=== PATIENT | female | born 1945 | race Hispanic/Latino ===

== ENCOUNTER 2018-02-10 19:56 | Observation (INO) | payer MEDICARE ==
[~2018-02-10] VITALS: Ht 165.1 cm; Wt 64.4 kg
[~2018-02-10 19:56] MED LIST: ALBU8.5H8 IH; CETI10TA86 PO; ESOM40CA PO; HYOS-28 PO; METO5TAB87 PO; ONDA4TAB10 PO; TRAM50TA2 PO; [UNRECOGNIZED DRUG - CODE] PO
[2018-02-10] MEDS ORDERED: IPRATROPIUM/ALBUTEROL SULFATE 3 ML SOLUTION IH ONE (20:15)
[2018-02-10 20:23] LABS: EOSINOPHILS % (AUTO) 3.8 % (0.0-8.0); HEMATOCRIT 34.5 % (36-48); LYMPHOCYTES % (AUTO) 34.1 % (21.0-51.0); MEAN CORPUSCULAR HEMOGLOBIN 28.3 pg (27.0-33.0); MEAN CORPUSCULAR HGB CONC 34.6 g/dL (32.0-36.0); MEAN CORPUSCULAR VOLUME 81.8 fL (79-99); MONOCYTES % (AUTO) 8.3 % (3.0-13.0); NEUTROPHILS % (AUTO) 52.8 % (40.0-77.0); NUCLEATED RED BLOOD CELLS 0.1 % (0.0-0.19); PLATELET COUNT (AUTO) 228 K/uL (130-400); RED BLOOD CELL COUNT(AUTO) 4.22 MIL/uL (4.00-5.50); RED CELL DISTRIBUTION WIDTH 14.2 % (11.0-15.5); WHITE BLOOD COUNT (AUTO) 8.9 K/uL (4.8-10.8)
[2018-02-10 20:36] LABS: INR 0.95 (0.85-1.15)
[2018-02-10 20:44] LABS: POTASSIUM 3.8 mmol/L (3.5-5.1)
[2018-02-10 20:50] LABS: B-TYPE NATRIURETIC PEPTIDE 28 pg/mL (0-100)
[2018-02-10 20:52] LABS: ALBUMIN 3.2 g/dL (3.5-5.0); BILIRUBIN,TOTAL 0.2 mg/dL (0.2-1.0); TOTAL PROTEIN, SERUM 6.7 g/dL (6.0-8.3)
[2018-02-10] MEDS ORDERED: ASPIRIN 325 MG TABLET ONE (21:28)
[2018-02-10] MEDS ORDERED: ACETAMINOPHEN 325 MG TAB PO PRN ×2 (23:00)
[2018-02-10] MEDS ORDERED: HYDRALAZINE HCL 20 MG/ML VIAL IV PRN (23:00)
[2018-02-10] MEDS ORDERED: POTASSIUM CHLORIDE 20MEQ/100ML 100 ML IV PRN (23:00)
[2018-02-10] MEDS ORDERED: POTASSIUM CHLORIDE 20 MEQ ERTAB PO PRN (23:00)
[2018-02-10] MEDS ORDERED: POTASSIUM CHLORIDE 10% ELIXIR 20 MEQ/15 ML UDCUP PO PRN (23:00)
[2018-02-10] MEDS ORDERED: LIDOCAINE HCL-MPF 1% 2ML VIAL IVP PRN (23:00)
[2018-02-10] MEDS ORDERED: ONDANSETRON HCL 4 MG/2 ML VIAL IV PRN (23:00)
[2018-02-11] VITALS (7 sets, daily range): BP systolic 127–160; BP diastolic 66–85
[2018-02-11] MEDS: KETOROLAC TROMETHAMINE 15MG/ML IV PRN ×3 (00:51→22:58)
[2018-02-11] MEDS: NITROGLYCERIN 1GM/1 INCH PACKET TD SCH ×4 (00:56→22:51)
[2018-02-11 02:34] LABS: CREATINE KINASE MB 1.6 ng/mL (0.5-3.6); TROPONIN I 0.15 ng/mL (0.00-0.06)
[2018-02-11] MEDS ORDERED: ACET1TAB25 PO (03:08)
[2018-02-11] MEDS ORDERED: HYDR-3422 PO (03:08)
[2018-02-11] MEDS ORDERED: LORA10TA7 PO (03:09)
[2018-02-11] MEDS ORDERED: MELO-106 PO (03:09)
[2018-02-11] MEDS ORDERED: VENL100T4 PO (03:09)
[2018-02-11] MEDS ORDERED: TRAZ-187 PO (03:09)
[2018-02-11] MEDS ORDERED: BUSP7.5T7 PO (03:09)
[2018-02-11] MEDS ORDERED: DONE10TA43 PO (03:09)
[2018-02-11 08:35] LABS: HEMATOCRIT 33.2 % (36-48); MEAN CORPUSCULAR HEMOGLOBIN 27.5 pg (27.0-33.0); MEAN CORPUSCULAR HGB CONC 33.4 g/dL (32.0-36.0); MEAN CORPUSCULAR VOLUME 82.3 fL (79-99); PLATELET COUNT (AUTO) 185 K/uL (130-400); RED BLOOD CELL COUNT(AUTO) 4.03 MIL/uL (4.00-5.50); RED CELL DISTRIBUTION WIDTH 14.5 % (11.0-15.5); WHITE BLOOD COUNT (AUTO) 8.8 K/uL (4.8-10.8)
[2018-02-11 08:58] LABS: CREATINE KINASE MB 1.5 ng/mL (0.5-3.6); POTASSIUM 3.8 mmol/L (3.5-5.1); TROPONIN I 0.12 ng/mL (0.00-0.06)
[2018-02-11] MEDS: FAMOTIDINE 20MG TAB 20 MG TAB PO SCH ×2 (09:21→20:15)
[2018-02-11] MEDS: METOPROLOL TARTRATE 25 MG TAB PO SCH (09:21)
[2018-02-11] MEDS: ASPIRIN 325 MG TABLET PO SCH (09:21)
[2018-02-11] MEDS ORDERED: TRAMADOL HCL 50 MG TABLET PO PRN (12:15)
[2018-02-11] MEDS: METOCLOPRAMIDE 5 MG TABLET PO SCH ×2 (12:53→16:44)
[2018-02-11] MEDS: HYDROXYZINE HCL 25 MG TABLET PO SCH ×2 (14:11→20:15)
[2018-02-11] MEDS: MELOXICAM 7.5 MG TABLET PO SCH (20:16)
[2018-02-11] MEDS ORDERED: TRAZODONE HCL 100 MG TABLET PO SCH (21:00)
[2018-02-11] MEDS ORDERED: DONEPEZIL HCL 5 MG TAB PO SCH (21:00)
[2018-02-11] MEDS ORDERED: ONDANSETRON HCL MDV 20ML 2 MG/ML VIAL ONE (22:46)
[2018-02-12] MEDS: METOPROLOL TARTRATE 25 MG TAB PO SCH ×2 (00:14→09:32)
[2018-02-12 03:33] VITALS: BP 127/56
[2018-02-12] MEDS: NITROGLYCERIN 1GM/1 INCH PACKET TD SCH (06:29)
[2018-02-12] MEDS: METOCLOPRAMIDE 5 MG TABLET PO SCH ×2 (06:33→11:30)
[2018-02-12 07:00] VITALS: BP 122/58
[2018-02-12] MEDS ORDERED: BUSPIRONE HCL 5 MG TABLET PO SCH (09:00)
[2018-02-12] MEDS ORDERED: VENLAFAXINE HCL 50 MG TABLET PO SCH (09:00)
[2018-02-12] MEDS ORDERED: LORATADINE 10 MG TABLET PO SCH (09:00)
[2018-02-12] MEDS: HYDROXYZINE HCL 25 MG TABLET PO SCH (09:31)
[2018-02-12] MEDS: ASPIRIN 325 MG TABLET PO SCH (09:32)
[2018-02-12] MEDS: MELOXICAM 7.5 MG TABLET PO SCH (09:32)
[2018-02-12] MEDS: FAMOTIDINE 20MG TAB 20 MG TAB PO SCH (09:32)
[2018-02-12 11:00] VITALS: BP 133/64
== END 2018-02-12 12:50 | disposition home or self-care (01) ==
LOC: EDH 19:56 → EDHIP 22:25 → 2DH 23:15
PROVIDERS: ADMIT Family Medicine; ATTEND Family Medicine
DX: R07.9 Chest pain, unspecified (principal); F41.9 Anxiety disorder, unspecified; F32.9 Major depressive disorder, single episode, unspecified; M19.90 Unspecified osteoarthritis, unspecified site; Z88.0 Allergy status to penicillin; Z90.49 Acquired absence of other specified parts of digestive tract
CPT/HCPCS: 36415 ×2; 71045; 71250; 80048; 80053; 82550 ×3; 82553 ×2; 83874 ×2; 83880; 84484 ×3; 85025; 85027; 85378; 85610; 85730; 93005; 93306; 94640; 96374; 96375; 96376; 99291; G0378 ×38; J1885 ×3

== ENCOUNTER → 2019-02-07 | Outpatient (CLI) | payer MEDICARE ==
[~2019-02-07] MED LIST changes: +BUSP7.5T7 PO; -CETI10TA86 PO; +DONE10TA43 PO; -ESOM40CA PO; +HYDR-3422 PO; -HYOS-28 PO; +LORA10TA7 PO; +MELO-106 PO; -ONDA4TAB10 PO; -TRAM50TA2 PO; +TRAZ-187 PO; +VENL100T4 PO; -[UNRECOGNIZED DRUG - CODE] PO
== END | disposition home or self-care (01) ==
LOC: RAH 13:13
PROVIDERS: ATTEND Anesthesiology
DX: S83.242A Other tear of medial meniscus, current injury, left knee, initial encounter (principal); S83.241A Other tear of medial meniscus, current injury, right knee, initial encounter; M47.816 Spondylosis without myelopathy or radiculopathy, lumbar region; M48.061 Spinal stenosis, lumbar region without neurogenic claudication; M17.0 Bilateral primary osteoarthritis of knee; X58.XXXA Exposure to other specified factors, initial encounter; Y93.89 Activity, other specified; Y92.89 Other specified places as the place of occurrence of the external cause; Y99.8 Other external cause status
CPT/HCPCS: 72100; 72148; 73562; 73721

== ENCOUNTER 2019-04-23 22:46 | Emergency (ER) | payer MEDICARE ==
[2019-04-23 23:39] LABS: BASOPHILS % (AUTO) 0.8 % (0.0-5.0); EOSINOPHILS % (AUTO) 1.8 % (0.0-8.0); HEMATOCRIT 41.2 % (36-48); LYMPHOCYTES % (AUTO) 34.6 % (21.0-51.0); MEAN CORPUSCULAR HEMOGLOBIN 29.2 pg (27.0-33.0); MEAN CORPUSCULAR HGB CONC 33.3 g/dL (32.0-36.0); MEAN CORPUSCULAR VOLUME 87.6 fL (79-99); MONOCYTES % (AUTO) 9.4 % (3.0-13.0); NEUTROPHILS % (AUTO) 53.4 % (40.0-77.0); PLATELET COUNT (AUTO) 175 K/uL (130-400); RED CELL DISTRIBUTION WIDTH 14.6 % (11.0-15.5)
[2019-04-23] MEDS ORDERED: DiphenhydrAMINE HCL 50 MG/ML VIAL ONE (23:55)
[2019-04-23] MEDS ORDERED: LIDOCAINE 5% TOPICAL PATCH TP ONE (23:55)
[2019-04-23] MEDS ORDERED: KETOROLAC TROMETHAMINE 15MG/ML ONE (23:56)
[2019-04-23] MEDS ORDERED: SODIUM CHLORIDE 0.9% 1000ML 1,000 ML IV ONE (23:57)
[2019-04-24 00:13] LABS: CREATININE 1.2 mg/dL (0.5-1.5); POTASSIUM 3.2 mmol/L (3.5-5.1)
[2019-04-24 00:18] LABS: ALBUMIN 4.1 g/dL (3.5-5.0); BILIRUBIN,TOTAL 0.7 mg/dL (0.2-1.0); TOTAL PROTEIN, SERUM 7.7 g/dL (6.0-8.3)
[2019-04-24] MEDS ORDERED: LIDOCAINE PF 2% 5ML ABBOJECT ONE (00:34)
== END 2019-04-24 02:10 | disposition home or self-care (01) ==
LOC: EDH 22:46
DX: M62.830 Muscle spasm of back (principal); G89.29 Other chronic pain; F41.9 Anxiety disorder, unspecified; R10.13 Epigastric pain; R11.2 Nausea with vomiting, unspecified; R06.00 Dyspnea, unspecified; F32.9 Major depressive disorder, single episode, unspecified; M19.90 Unspecified osteoarthritis, unspecified site; Z91.041 Radiographic dye allergy status; Z88.0 Allergy status to penicillin; Z90.710 Acquired absence of both cervix and uterus
CPT/HCPCS: 36415; 72100; 80053; 82550; 85025; 96361; 96374; 96375; 99285; J1200; J1885; J2001; J7030

== ENCOUNTER 2024-10-18 17:02 | Emergency (ER) | payer OTHER ==
[~2024-10-18] VITALS: Ht 165.1 cm; Wt 54.4 kg
[~2024-10-18 17:02] MED LIST changes: -ALBU8.5H8 IH; +ALPR1TAB7 PO; -BUSP7.5T7 PO; -DONE10TA43 PO; -LORA10TA7 PO; -MELO-106 PO; -METO5TAB87 PO; +PANT40GR PO; +RISP1TAB68 PO; -TRAZ-187 PO; -VENL100T4 PO
[2024-10-18] MEDS: ALPRAZolam 0.5 MG TABLET PO ONE (18:12)
[2024-10-18 18:19] LABS: BASOPHILS # (AUTO) 0.05 K/uL (0.00-0.20); BASOPHILS % (AUTO) 0.8 % (0.0-5.0); EOSINOPHILS # (AUTO) 0.01 K/uL (0.00-0.70); EOSINOPHILS % (AUTO) 0.2 % (0.0-8.0); HEMATOCRIT 37.9 % (36-48); IMMATURE GRANULOCYTE ABSOLUTE 0.02 K/uL (0-1); LYMPHOCYTES # (AUTO) 1.3 K/uL (1.0-4.8); LYMPHOCYTES % (AUTO) 19.2 % (21.0-51.0); MEAN CORPUSCULAR HGB CONC 33.8 g/dL (32.0-36.0); MEAN CORPUSCULAR VOLUME 97.7 fL (79-99); MONOCYTES # (AUTO) 0.3 K/uL (0.1-1.0); MONOCYTES % (AUTO) 5.2 % (3.0-13.0); NEUTROPHILS # (AUTO) 4.9 K/uL (1.8-7.7); NEUTROPHILS % (AUTO) 74.3 % (40.0-77.0); PLATELET COUNT (AUTO) 235 K/uL (130-400); RED BLOOD CELL COUNT(AUTO) 3.88 MIL/uL (4.00-5.50); RED CELL DISTRIBUTION WIDTH 13.1 % (11.0-15.5); WHITE BLOOD COUNT (AUTO) 6.6 K/uL (4.8-10.8)
--- NOTE | 2024-10-18 18:26 | EKG ---
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
[2024-10-18 18:27] LABS: CREATININE 0.8 mg/dL (0.5-1.0); POTASSIUM 3.3 mmol/L (3.5-5.1)
--- NOTE | 2024-10-18 18:40 | ERN ---
ED Note History of Present Illness Stated Complaint: ANXIETY MEDICATION, MULTIPLE COMPLAINTS Chief Complaint: Anxiety/Panic Attack Time Seen by MD: 17:08 Time Seen by Midlevel: 17:08 Dictation: The patient is a 79-year-old female with a history of anxiety, arthritis, GERD who presents to the emergency department with complaints of a feeling anxious onset four days ago after she finished her prescription of alprazolam. Patient takes alprazolam1 mg q.i.d.. Reports she was seen by her primary doctor who refused to give her anymore prescriptions. Allergies: Coded Allergies: codeine (Unverified Allergy, Mild, HEADACHE, 08/25/14) GENERALIZED PAIN Iodine and Iodide Containing Produc (Unverified Allergy, Unknown, 04/24/19) Penicillins (Verified Allergy, Unknown, UNKNOWN, 07/16/13) PT DOES NOT KNOW iodine (Verified Allergy, Unknown, VOMITTING, 07/16/13) PT WAS DOES NOT REMEMBER EXACTLY WHAT HAPPEN Home Meds Reported Medications Risperidone (Risperidone) 1 Mg Tab.rapdis, 1 MG PO BID, TAB 06/05/23 Pantoprazole Sodium (Pantoprazole Sodium) 40 Mg Granpkt.dr, 40 MG PO DAILY, PACK 06/05/23 Alprazolam (Alprazolam) 1 Mg Tablet, 1 MG PO TIDP PRN for ANXIETY, TAB 06/05/23 Hydroxyzine HCl (Hydroxyzine HCl) 50 Mg Tablet, 100 MG PO TID, TAB 02/11/18 Past Medical History Past Medical History: Anxiety, Arthritis, Depression, GERD Additional Past Medical Hx: GASTRITIS Surgical History: Cholecystectomy RN Note Reviewed/Agreed w/PFSH: Yes Review of System Dictation Constitutional: Negative for fever,chills, and weight loss Eyes: Negative for injury, pain,redness, and discharge ENT: Negative for injury,pain or swelling Cardiovascular: Negative for chest pain, palpitations, and edema Respiratory: Negative for shortness of breath, cough, and wheezing, Abdomen/GI: Negative for abdominal pain, nausea, vomiting, diarrhea, and constipation Back: Negative for injury and pain : Negative for injury, bleeding and discharge MS/Extremity: Negative for injury and deformity Skin: Negative for rash, and discoloration Neuro: Negative for headache, weakness, numbness, tingling, and seizure Psych: Negative for suicide ideation, homicidal ideation, and hallucinations positive for anxiety Initial Vital Sign VS Vital Signs Date Time Temp Pulse Resp B/P (MAP) Pulse Ox O2 Delivery O2 Flow Rate FiO2 10/18/24 17:27 99.0 110 20 164/100 98 Room Air 0 10/18/24 18:40 21 Physical Exam Dictation Vital Signs reviewed General Appearance: Alert, oriented x 3, no acute distress, well developed, nourished. Appears anxious Head and Face: non-traumatic. Eyes: PERRL, pink conjunctivas, eyelid no trauma, anterior chamber with arcus senilis. Ears: Pinnas intact and no signs of trauma or erythema ear canals clear and no discharge TM no erythema Nose: No discharge, no bleeding. Oropharynx: Mouth normal, tongue pink. pharynx clear,no erythema, tonsils no exudates, no abscesses noted, mucous membrane moist Neck: Supple, non-tender, no thyromegaly, no masses, no JVD, no bruits Breast:Deferred Chest:No tenderness, no crepitus, no paradoxical movement, no retractions Lungs:Clear, well-ventilated, symmetric, no rales, no wheezing, no rhonchi, no stridor, good breath sounds bilaterally Heart: Regular rate, regular rhythm, no murmur, no gallops Vascular: no peripheral edema, Abdomen: Soft, positive bowel sounds, nondistended, no guarding, nontender, no rebound, no masses no hepatomegaly, no splenomegaly, no Ocampo's sign, no hernias. Rectal: Deferred Genital: Deferred Neurological: Normal speech, motor function intact, sensory function intact Musculoskeletal: Neck nontender, full range of motion, back nontender, full range of motion, Extremities: nontender, full range of motion Skin: Color pink, dry, no turgor, no rash, no lacerations, no abrasions, no contusions. Lymphatic: Deferred Results (Laboratory/Radiology) Laboratory/Radiology Laboratory Tests Test 10/18/24 18:10 White Blood Count 6.6 K/uL (4.8-10.8) Red Blood Count 3.88 MIL/uL (4.00-5.50) L Hemoglobin 12.8 g/dL (12.0-16.0) Hematocrit 37.9 % (36-48) Mean Corpuscular Volume 97.7 fL (79-99) Mean Corpuscular Hemoglobin 33.0 pg (27.0-33.0) Mean Corpuscular Hemoglobin Concent 33.8 g/dL (32.0-36.0) Red Cell Distribution Width 13.1 % (11.0-15.5) Platelet Count 235 K/uL (130-400) Mean Platelet Volume 9.1 fL (7.5-10.5) Immature Granulocyte % (Auto) 0.3 % (0-1) Neutrophils (%) (Auto) 74.3 % (40.0-77.0) Lymphocytes (%) (Auto) 19.2 % (21.0-51.0) L Monocytes (%) (Auto) 5.2 % (3.0-13.0) Eosinophils (%) (Auto) 0.2 % (0.0-8.0) Basophils (%) (Auto) 0.8 % (0.0-5.0) Neutrophils # (Auto) 4.9 K/uL (1.8-7.7) Lymphocytes # (Auto) 1.3 K/uL (1.0-4.8) Monocytes # (Auto) 0.3 K/uL (0.1-1.0) Eosinophils # (Auto) 0.01 K/uL (0.00-0.70) Basophils # (Auto) 0.05 K/uL (0.00-0.20) Absolute Immature Granulocyte (auto 0.02 K/uL (0-1) Nucleated Red Blood Cells 0.0 % (0.0-0.19) Sodium Level 130 mmol/L (136-145) L Potassium Level 3.3 mmol/L (3.5-5.1) L Chloride Level 94 mmol/L (101-111) L Carbon Dioxide Level 26 mmol/L (21-32) Blood Urea Nitrogen 17 mg/dL (7-18) Creatinine 0.8 mg/dL (0.5-1.0) Glomerular Filtration Rate Calc 76 mL/min (>90) Random Glucose 78 mg/dL (70-105) Total Calcium 9.0 mg/dL (8.5-10.1) Troponin I High Sensitivity 11 ng/L (4-50) REASON: sob ORDERING PHYSICIAN: TYLER KELLY PROCEDURE: CXR1VW - CHEST 1VW CHEST 1VW HISTORY: Shortness of breath COMPARISON: 06/05/2023 FINDINGS: A frontal projection of the chest was obtained. No acute pulmonary infiltrates is seen. The heart is normal in size. Prominent interstitial markings are seen. No evidence of aortic calcification is seen. IMPRESSION: 1. No acute pulmonary infiltrate is seen. Labs Reviewed?: Yes EKG: (+) rhythm (Sinus tachycardia) EKG Comment: Date:10/18/2024 Time:1821 Ventricular rate: 107 AR interval:125 QRS duration:134 QT/QTc:373 EKG interpretation: Sinus tachycardia Reviewed by ED Attending no STEMI Date:10/18/2024 Time:1946 Ventricular rate:97 AR interval:189 QRS duration:189 QT/QTc:392 EKG interpretation: Sinus rhythm Reviewed by ED Attending ED Course ED Course Orders Procedure Category Date Status Time Cbc With Differential LAB 10/18/24 Complete 18:02 Chest 1vw RAD 10/18/24 Resulted 18:02 12 Lead Ekg Tracing- EKG 10/18/24 Complete Technical 18:02 Troponin I High LAB 10/18/24 Complete Sensitivity 18:02 Basic Metabolic Panel LAB 10/18/24 Complete 18:02 Alprazolam 0.5mg PHA 10/18/24 Complete (Xanax 0.5mg) 18:30 12 Lead Ekg Tracing- EKG 10/18/24 Logged Technical 19:29 Current Medications Medications (Trade) Dose Ordered Sig/Guzman Route PRN Reason Start Time Stop Time Status Last Admin Dose Admin Alprazolam (XANax 0.5MG) 0.5 mg ONCE ONCE PO 10/18/24 18:30 10/18/24 18:31 DC 10/18/24 18:12 Vital Signs Date Time Temp Pulse Resp B/P (MAP) Pulse Ox O2 Delivery O2 Flow Rate FiO2 10/18/24 18:40 90 18 142/90 97 Room Air* 0 21 10/18/24 17:27 99.0 110 20 164/100 98 Room Air 0 Medical Decision Making MDM The patient is a 79-year-old female with a history of anxiety, arthritis, GERD who presents to the emergency department with complaints of a feeling anxious onset four days ago after she finished her prescription of alprazolam. Patient takes alprazolam1 mg q.i.d.. Reports she was seen by her primary doctor who refused to give her anymore prescriptions. CBC showed no leukocytosis, no anemia, chemistry showed mild hypokalemia , negative troponin. EKG similar to previous EKGs. Patient with no pain. X-ray unremarkable. Patient appears less anxious with medication. Patient instructed to follow up with PCP. Patient no acute distress. Stable vital signs. Differential diagnosis: Anxiety, pneumonia, pneumothorax, ACS Need for hospitalization: Patient does not meet criteria for hospitalization. There are no social concerns with this patient. DX & DISP Disposition: Discharge Departure Impression: Primary Impression: Anxiety Condition: Stable Additional Instructions: Please follow up with your PCP in 1-2 days. If symptoms worsen please return to ER. FOLLOW-UP WITH PRIMARY CARE PROVIDER IN 1 TO 2 DAYS. TAKE MEDICATIONS DIRECTED HERE IN THE EMERGENCY ROOM. OKAY TO CONTINUE HOME MEDICATIONS UNLESS OTHERWISE DISCUSSED DURING YOUR VISIT IN THE EMERGENCY ROOM TODAY. RETURN TO YOUR NEAREST EMERGENCY ROOM IF SYMPTOMS WORSEN OR IF THERE IS NO IMPROVEMENT. CALL 911 IF YOU NEED IMMEDIATE ASSISTANCE. TAKE TYLENOL OR MOTRIN [id number] NEEDED AND IF NO CONTRAINDICATIONS ARE PRESENT. INCREASE O RAL HYDRATION. A WOUND CULTURE OR URINE CULTURE WAS ORDERED HERE IN THE EMERGENCY ROOM DEPARTMENT PLEASE FOLLOW-UP WITH PRIMARY CARE PROVIDER AND ADVISE THEM TO GET REPEAT PORTS FROM OUR FACILITY. IF YOU HAD ANY CLEMENTINE WRAP/SPLINTS THAT WERE APPLIED HERE, PLEASE DO NOT REMOVE THEM UNTIL YOU SEE YOUR PRIMARY CARE OR SPECIALTY. Referrals: JAYSHREE ESPINOZA (PCP) Time of Disposition: 20:01 I have reviewed the case, and I agree with, Diagnosis and Plan TYLER KELLY Oct 18, 2024 18:40
[2024-10-18 20:09] VITALS: BP 142/90; PULSE 80; RESP 18; TEMP 98.9; O2SAT 98
--- NOTE | 2024-10-18 20:34 | EKG ---
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
== END 2024-10-18 20:16 | disposition home or self-care (01) ==
LOC: EDH 17:02
DX: F41.9 Anxiety disorder, unspecified (principal); M19.90 Unspecified osteoarthritis, unspecified site; F32.A Depression, unspecified; K21.9 Gastro-esophageal reflux disease without esophagitis; Z79.899 Other long term (current) drug therapy; Z88.0 Allergy status to penicillin; Z88.5 Allergy status to narcotic agent; Z88.8 Allergy status to other drugs, medicaments and biological substances; Z90.49 Acquired absence of other specified parts of digestive tract; Z91.041 Radiographic dye allergy status
CPT/HCPCS: 36415; 71045; 80048; 84484; 85025; 93005; 99285